=== PATIENT | female | born 1945 | race Caucasian/White ===

== ENCOUNTER → 2016-11-08 | Outpatient (REF) | payer MEDICARE | LOC: M LAB REF 16:54 | PROVIDERS: ATTEND Family Medicine | DX: E83.52 Hypercalcemia (principal) ==

== ENCOUNTER → 2017-01-22 | Outpatient (REF) | payer MEDICARE | LOC: M LAB REF 12:52 | PROVIDERS: ATTEND Family Medicine | DX: E83.52 Hypercalcemia (principal) ==

== ENCOUNTER → 2017-08-16 | Outpatient (CLI) | payer MEDICARE ==
--- NOTE | 2017-08-16 11:37 | REP ---
Clinical: Elevated thyroid and parathyroid levels. Technique: Real time castaneda scale ultrasound examination with color Doppler evaluation using linear high frequency transducer. Findings: The thyroid gland is diffusely heterogeneous, but normal in size and contour. Isthmus measures 2.4 mm in width. Right lobe measures 5.0 x 1.4 x 1.9 cm and includes 3.4 x 3.1 x 2.4 mm upper pole nonspecific hypoechoic nodule, 4.1 x 2.0 x 3.6 mm lower pole nonspecific hypoechoic nodule and 4.0 x 3.3 x 4.4 mm simple mid pole cyst. Left lobe measures 4.8 x 1.5 x 2.0 cm and includes 5.3 x 3.5 x 4.9 mm and 4.1 x 4.0 x 4.8 mm upper pole nonspecific hypoechoic nodules, and 3.4 x 3.4 x 2.8 mm mid pole nonspecific hypoechoic nodule. Impression: Few nonspecific hypoechoic solid nodules as detailed above. Signed by Brad Glover MD 08/16/2017 11:28 A
--- NOTE | 2017-08-16 14:38 | REP ---
Radionuclide parathyroid scintigraphy with SPECT imaging: History: Hypercalcemia. Technique: 27.1 mCi of technetium 99m sestamibi is injected and 15-minute and three hour delayed planar images of the head and neck and mediastinal soft tissues are acquired along with SPECT acquisition. Scintigraphic findings: The initial 15-minute images demonstrate normal salivary and thyroid gland uptake. Delayed scan images demonstrate expected washout of the thyroid uptake. There is no evidence of abnormal focus of increased uptake in the head and neck or mediastinal soft tissues to suggest a parathyroid adenoma. SPECT imaging shows no additional abnormality. Impression: Negative parathyroid nuclear scintigraphy. Signed by Nic Parrish MD 08/16/2017 04:09 P
== END ==
LOC: M RAD 09:42
PROVIDERS: ATTEND Family Medicine
DX: E83.52 Hypercalcemia (principal); E21.0 Primary hyperparathyroidism
CPT/HCPCS: 76536; 78070; 78803; A9500

== ENCOUNTER → 2017-11-13 | Outpatient (REF) | payer MEDICARE ==
[2017-11-13 17:26] LABS: PTH INTACT 134.5 PG/ML (18.5-88.0)
== END ==
LOC: M LAB REF 16:42
DX: E83.52 Hypercalcemia (principal)
CPT/HCPCS: 82330

== ENCOUNTER → 2018-12-17 | Outpatient (REF) | payer MEDICARE | LOC: M LAB REF 12:02 | PROVIDERS: ATTEND Family Medicine | DX: E83.52 Hypercalcemia (principal) ==

== ENCOUNTER → 2019-06-30 | Outpatient (REF) | payer MEDICARE | LOC: M LAB REF 12:36 | PROVIDERS: ATTEND Family Medicine | DX: E83.52 Hypercalcemia (principal) ==

== ENCOUNTER → 2019-08-12 | Outpatient (REF) | payer MEDICARE | LOC: M LAB REF 18:55 | PROVIDERS: ATTEND Ophthalmology | DX: D23.10 Other benign neoplasm of skin of unspecified eyelid, including canthus (principal) ==

== ENCOUNTER 2020-02-03 20:30 | Emergency (ER) | payer MEDICARE ==
[~2020-02-03] VITALS: Ht 172.7 cm; Wt 73.6 kg
[2020-02-03] MEDS ORDERED: NS 1,000 ML IV ONE ×2 (21:00→21:45)
[2020-02-03] MEDS ORDERED: ONDANSETRON 4MG/2ML VIAL IV ONE (21:00)
[2020-02-03] MEDS ORDERED: ISOVUE-370 76% 100ML VIAL As Ordered ONE (21:02)
[2020-02-03] MEDS ORDERED: AMLO10TA5 (21:19)
[2020-02-03] MEDS ORDERED: POTA10TA17 (21:19)
[2020-02-03] MEDS ORDERED: CLOP75TA2 (21:19)
[2020-02-03] MEDS ORDERED: LOSA50TA5 (21:19)
[2020-02-03] MEDS ORDERED: PRAV40TA2 (21:19)
[2020-02-03] MEDS ORDERED: ZYLO300T6 (21:19)
[2020-02-03] MEDS ORDERED: HYDR12.55 (21:19)
[2020-02-03] MEDS ORDERED: LATA0.0015 (21:19)
[2020-02-03 21:25] LABS: BASO % 0.1 % (0.0-1.0); HEMATOCRIT 33.5 % (36.0-47.0); HEMOGLOBIN 11.2 g/dl (12.0-15.5); LYMPH % 21.3 % (24.0-44.0); MEAN CORPUSCULAR HEMOGLOBIN 34.8 pg (27.0-33.0); MEAN CORPUSCULAR HGB CONC 33.4 g/dl (32.0-36.5); MONO # 0.8 10^3/uL (0.0-0.8); MONO % 5.6 % (0.0-5.0); NEUTROPHILS % 72.4 % (36.0-66.0); PLATELET COUNT, AUTOMATED 235 10^3/uL (150-450); RED BLOOD COUNT 3.22 10^6/uL (4.00-5.40); WHITE BLOOD COUNT 13.8 10^3/uL (4.0-10.0)
[2020-02-03 21:55] LABS: BILIRUBIN,DIRECT 0.1 MG/DL (0.0-0.2); BILIRUBIN,TOTAL 0.4 MG/DL (0.2-1.0); CALCIUM LEVEL 9.2 MG/DL (8.8-10.2); CK-MB VALUE MASS 1.3 NG/ML (<3.6); CREATININE FOR GFR 1.29 MG/DL (0.55-1.30); GLOMERULAR FILTRATION RATE 43.1 (>39); MB/CK RELATIVE INDEX 2.71 (< OR =4); POTASSIUM SERUM 3.8 MEQ/L (3.5-5.1); TOTAL PROTEIN 6.5 GM/DL (6.4-8.2); TROPONIN I 0.1 NG/ML (< 0.10)
--- NOTE | 2020-02-03 22:53 | REPVR ---
PROCEDURE INFORMATION: Exam: CT Abdomen And Pelvis With Contrast Exam date and time: 02/03/2020 10:30 PM Age: 74 years old Clinical indication: Abdominal pain; Additional info: Nausea and vomiting TECHNIQUE: Imaging protocol: Computed tomography of the abdomen and pelvis with intravenous contrast. Radiation optimization: All CT scans at this facility use at least one of these dose optimization techniques: automated exposure control; mA and/or kV adjustment per patient size (includes targeted exams where dose is matched to clinical indication); or iterative reconstruction. Contrast material: ISO 370; Contrast volume: 100 ml; Contrast route: IV; COMPARISON: No relevant prior studies available. FINDINGS: Mediastinum: There is a small hiatal hernia. Liver: Within the medial segment of left hepatic lobe, there is a 1.2 x 0.7 cm hypodense probable cyst or hemangioma. A few additional tiny hepatic lesions are identified, too small to characterize further. Gallbladder and bile ducts: No calcified stones. No ductal dilation. Pancreas: Unremarkable. No ductal dilation. Spleen: The spleen is small in size. Adrenals: There is nonspecific thickening of the bilateral adrenal glands, left side greater than right. Kidneys and ureters: There is lobulation of the bilateral renal cortices, with parenchymal scarring at the mid to lower pole of the right kidney. Hypodense simple appearing cysts are identified within the kidneys bilaterally. The largest cyst is at the lower pole of the left kidney measuring 3.0 cm in diameter. No hydronephrosis bilaterally. Stomach and bowel: There is interposition of colon anterior to the liver. Colonic diverticula are identified. An enlarged diverticulum is identified of the sigmoid colon. Sigmoid wall thickening visualized. Mild pericolonic stranding is identified adjacent to the sigmoid colon, consistent with mild diverticulitis or colitis. Mild additional wall thickening of the ascending colon, hepatic flexure, and proximal transverse colon identified, suggestive of colitis. Mild wall thickening of small bowel loops within the left side of the abdomen, suggestive of enteritis. Significant wall thickening of the antrum of the stomach, suggestive of antral gastritis. Additional pathology cannot be excluded. Appendix: No evidence of appendicitis. Intraperitoneal space: No free air. No significant fluid collection. Vasculature: There is atherosclerotic calcification of the abdominal aorta and iliac arteries. Lymph nodes: No enlarged lymph nodes. Bladder: Nonspecific wall thickening of the bladder. The bladder is nearly empty, which can contribute to wall thickening. Reproductive: There is a prominent uterine mass/fibroid identified. This measures 6.2 x 5.7 x 6.9 cm. Bones/joints: Grade 1/2 anterolisthesis of L5 on S1, with spondylolysis. Hypertrophic degenerative changes are noted within the spine. Soft tissues: A small calcified density is identified within the subcutaneous tissues of the right buttock. Minimal herniation of fat into the umbilicus. IMPRESSION: 1. Colonic diverticula are identified. Sigmoid wall thickening visualized. Mild pericolonic stranding is identified adjacent to the sigmoid colon, consistent with mild diverticulitis or colitis. 2. Mild additional wall thickening of the ascending colon, hepatic flexure, and proximal transverse colon identified, suggestive of colitis. 3. Mild wall thickening of small bowel loops within the left side of the abdomen, suggestive of enteritis. 4. There is a prominent uterine mass/fibroid identified. 5. Significant wall thickening of the antrum of the stomach, suggestive of antral gastritis. Additional pathology cannot be excluded. 6. There is lobulation of the bilateral renal cortices, with parenchymal scarring at the mid to lower pole of the right kidney. Hypodense simple appearing cysts are identified within the kidneys bilaterally. 7. Nonspecific wall thickening of the bladder. 8. Grade 1/2 anterolisthesis of L5 on S1, with spondylolysis. 9. Additional findings described above. COMMENTS: Consistent with the [employer] [employer]'s Incidental Findings Committee white paper (J Am Estephanie Radiol 2018): Any incidental renal lesion less than 1.0 cm or classified as too small to characterize, or any incidental cystic renal lesion characterized as simple-appearing, is likely benign. No follow-up imaging is recommended for these lesions per consensus recommendations based on imaging criteria. Electronically signed by: Fenrando Myles On 02/03/2020 22:52:58 PM
[2020-02-03 22:55] VITALS: BP 111/75
[2020-02-03] MEDS ORDERED: PROMETHAZINE INJ 25 MG/ML VIAL (J2550) IV ONE (23:00)
[2020-02-03] MEDS ORDERED: ONDA4TAB6 PO (23:22)
[2020-02-03] MEDS ORDERED: CIPR-249 PO (23:22)
[2020-02-03] MEDS ORDERED: FLAG500T PO (23:22)
[2020-02-03] MEDS ORDERED: CIPROFLOXACIN 500MG TABLET PO ONE (23:30)
[2020-02-03] MEDS ORDERED: metroNIDAZOLE (FLAGYL) 500 MG TAB PO ONE (23:30)
[2020-02-03] MEDS ORDERED: ONDANSETRON 4 MG ORAL DISINTEGRATING TAB PO ONE (23:30)
--- NOTE | 2020-02-04 00:38 | ECGEPIP ---
[facility] - ED Test Date: 2020-02-03 Pat Name: ROLANDO GARCIA Department: Room: - Gender: Female [employer]airer: nahum : 1945 Requested By: JIM Horan Order Number: [id number] Reading MD: Jim Argueta Measurements Intervals [place] Rate: 119 P: 76 [place]: 143 QRS: 4 QRSD: 131 T: 110 QT: 350 QTc: 493 Interpretive Statements SINUS TACHYCARDIA WITH OCCASIONAL SUPRAVENTRICULAR PREMATURE COMPLEXES LEFT BUNDLE BRANCH BLOCK Comparison tracing not on file Electronically Signed on 02-04-2020 0:38:48 EDT by Jim Argueta
--- NOTE | 2020-02-04 08:16 | REP ---
PORTABLE CHEST X-RAY: Single view. HISTORY: Vomiting. COMPARISON PORTABLE CHEST X-RAY: March 02, 2007. There is also a comparison chest x-ray from May 14, 2013. FINDINGS: The lungs are symmetrically aerated and free of infiltrate. There is a faint nodular opacity in the right upper lobe perihilar region, which does not appear to have been present previously. Pleural angles are sharp. Cardiomediastinal silhouette is unremarkable. There is minimal curvature of the thoracic spine. No acute bony abnormality. IMPRESSION: There is an ill-defined 12 mm nodular opacity projecting in the right upper lobe. Rule out pulmonary nodule. Recommend chest CT study. Otherwise no active disease. Electronically Signed by Nic Parrish MD 02/04/2020 11:59 A
--- NOTE | 2020-02-04 12:15 | ED PDOC ---
Post-Departure Follow-Up cxr faxed to dr topete for fu Wesley Sweeney MD February 04, 2020 12:15
--- NOTE | 2020-02-04 12:15 | ED PDOC ---
Post-Departure Follow-Up dr topete faxed formal report of cxrp for fu Wesley Sweeney MD February 04, 2020 12:15
== END 2020-02-03 23:52 | disposition home or self-care (01) ==
LOC: M ED 20:30
DX: K52.9 Noninfective gastroenteritis and colitis, unspecified (principal); I44.7 Left bundle-branch block, unspecified; I25.10 Atherosclerotic heart disease of native coronary artery without angina pectoris; M10.9 Gout, unspecified; Z95.5 Presence of coronary angioplasty implant and graft; Z79.899 Other long term (current) drug therapy; Z79.01 Long term (current) use of anticoagulants; F17.210 Nicotine dependence, cigarettes, uncomplicated
CPT/HCPCS: 36415; 71045; 74177; 80048; 80076; 81001; 82150; 82550; 82553; 83605; 83690; 84484; 85025; 87040; 87086; 93005; 93041; 96361; 96374; 99284; J2405; Q9967

== ENCOUNTER → 2020-04-12 | Outpatient (REF) | payer MEDICARE ==
[~2020-04-12] MED LIST: AMLO1TAB25; CIPR-249 PO; CLOP75TA2; FLAG500T PO; HYDR12.55; LATA0.0015; LOSA50TA5; ONDA4TAB6 PO; POTA10TA17; PRAV40TA2; ZYLO300T6
== END ==
LOC: M LAB REF 11:36
PROVIDERS: ATTEND Family Medicine
DX: E83.52 Hypercalcemia (principal)

== ENCOUNTER → 2020-10-14 | Outpatient (REF) | payer MEDICARE | LOC: M LAB REF 12:06 | PROVIDERS: ATTEND Family Medicine | DX: E21.3 Hyperparathyroidism, unspecified (principal) ==

== ENCOUNTER → 2021-04-15 | Outpatient (REF) | payer MEDICARE | LOC: M LAB REF 16:32 | PROVIDERS: ATTEND Family Medicine | DX: E21.3 Hyperparathyroidism, unspecified (principal) ==

== ENCOUNTER → 2021-05-19 | Outpatient (CLI) | payer MEDICARE | LOC: M RAD 10:23 | PROVIDERS: ATTEND Family Medicine | DX: Z53.20 Procedure and treatment not carried out because of patient's decision for unspecified reasons (principal) ==

== ENCOUNTER → 2021-10-12 | Outpatient (CLI) | payer MEDICARE | LOC: M RAD 10:10 | PROVIDERS: ATTEND Family Medicine | DX: E83.52 Hypercalcemia (principal) | CPT/HCPCS: 78306; A9503 ==

== ENCOUNTER → 2021-10-21 | Outpatient (REF) | payer MEDICARE | LOC: M LAB REF 10-20 12:05 | PROVIDERS: ATTEND Family Medicine | DX: E83.52 Hypercalcemia (principal) ==

== ENCOUNTER → 2022-04-24 | Outpatient (REF) | payer MEDICARE ==
[~2022-04-24] MED LIST changes: +POTA-150; -POTA10TA17
== END ==
LOC: M LAB REF 12:19
PROVIDERS: ATTEND Family Medicine
DX: E83.52 Hypercalcemia (principal)

== ENCOUNTER → 2023-01-04 | Outpatient (REF) | payer MEDICARE | LOC: M LAB REF 12:56 | PROVIDERS: ATTEND Family Medicine | DX: E83.52 Hypercalcemia (principal) ==

== ENCOUNTER → 2023-10-19 | Outpatient (REF) | payer MEDICARE ==
[2023-10-19 11:48] LABS: IONIZED CALCIUM 5.1 MG/DL (4.5-5.3)
[2023-10-19 12:11] LABS: PTH INTACT 181.2 PG/ML (18.5-88.0)
== END ==
LOC: M LAB REF 10:19
PROVIDERS: ATTEND Family Medicine
DX: E83.52 Hypercalcemia (principal)

== ENCOUNTER → 2024-07-29 | Outpatient (REF) | payer MEDICARE ==
[~2024-07-29] MED LIST changes: +ONDA-282 PO; -ONDA4TAB6 PO
== END ==
LOC: M LAB REF 13:55
PROVIDERS: ATTEND Family Medicine
DX: E83.52 Hypercalcemia (principal)

== ENCOUNTER → 2025-02-03 | Outpatient (REF) | payer MEDICARE | LOC: M LAB REF 12:13 | PROVIDERS: ATTEND Family Medicine | DX: E83.52 Hypercalcemia (principal) ==

== ENCOUNTER → 2025-07-07 | Outpatient (REF) | payer MEDICARE ==
[~2025-07-07] MED LIST changes: -PRAV40TA2; +PRAV40TA85
[2025-07-07 14:34] LABS: PTH INTACT 134.7 PG/ML (18.5-88.0)
[2025-07-07 15:42] LABS: % LABILE ALKALINE PHOSPHATASE 45.0 %; LABILE ALKPHOS 51.0 U/L; STABLE ALKPHOS 62.0 U/L
== END ==
LOC: M LAB REF 13:01
PROVIDERS: ATTEND Family Medicine
DX: E83.52 Hypercalcemia (principal)